=== PATIENT | female | born 1960 ===

== ENCOUNTER → 2021-04-02 | Outpatient (CLI) | payer OTHER | END | disposition home or self-care (01) | LOC: RAD 10:32 | PROVIDERS: ATTEND Physical Medicine & Rehabilitation | DX: M75.31 Calcific tendinitis of right shoulder (principal) ==

== ENCOUNTER 2021-05-07 08:26 | Day surgery (SDC) | payer OTHER | END 2021-05-07 14:45 | disposition home or self-care (01) | LOC: CIR.AMB 08:26 | PROVIDERS: ATTEND Colon & Rectal Surgery | DX: K62.89 Other specified diseases of anus and rectum (principal); K64.8 Other hemorrhoids; Z20.822 Contact with and (suspected) exposure to COVID-19; Z12.11 Encounter for screening for malignant neoplasm of colon ==